=== PATIENT | male | born 1965 | race Caucasian/White ===

== ENCOUNTER 2023-03-08 11:37 | Emergency (ER) | payer BC, OTHER ==
[~2023-03-08] VITALS: Ht 170.2 cm; Wt 64.4 kg
--- OUTSIDE RECORDS SUMMARY | ~2023-03-08 | XMS | Continuity of Care Document ---
Demographics + + + | Address | [address] | | | [place] [address] | + + + | Preferred Language | Unknown | + + + | Marital Status | Never | + + + | Buddhist Affiliation | Unknown | + + + | Race | White | + + + | Ethnic Group | Not or | + + + Author + + + | Author | [facility] | + + + | Organization | [facility] | + + + | Address | [address] | | | [place] [address] | + + + | Phone | | + + + Care Team Providers + + + + | Care Custodian [employer] Name | Role | Phone | + + + + Unavailable | Unavailable | + + + + Allergies and Intolerances + + + + + + | date | description | facility | reaction | severity | + + + + + + | (no date) | Mild | [facility] | (no reaction) | (no severity) | | [facility] | | | + + + + + + | (no date) | Codeine | [facility] | (no reaction) | (no severity) | | | [facility] | | | + + + + + + | (no date) | Nausea alone | [facility] | (no reaction) | (no severity) | | | [facility] | | | + + + + + + | (no date) | Codeine | [facility] | (no reaction) | (no severity) | | | | [facility] | | | + + + + + + Encounters No information. Functional Status No information. Immunizations No information. Medications + + + + | date | description | facility | + + + + | 2022-04-21 00:00 | IPRATROPIUM BROMIDE MDI | [facility] | + + + + | 2022-04-21 00:00 | HYDROCODONE/APAP | [facility] | | | (10-325MG) | | + + + + | 2022-04-21 00:00 | HYDROCODONE | [facility] | | | BIT/ACETAMINOPHEN | | + + + + | 2022-04-21 00:00 | FLUTICASONE PROPIONATE | [facility] | + + + + Problems + + + + | date | description | facility | + + + + | 2022-04-21 00:00 | Patient left without being | [facility] | | | seen | | + + + + Procedures No information. Results/Labs No information. Social History No information. Vital Signs + + + +---------+ | date | measurement | value | units | + + + +---------+ | 2022-04-21 00:00 | BMI | 21.9 | kg/m2 | + + + +---------+ | 2022-04-21 00:00 | BP_diastolic | 66 | mmHg | + + + +---------+ | 2022-04-21 00:00 | BP_systolic | 125 | mmHg | + + + +---------+ | 2022-04-21 00:00 | heart_rate | 93 | /min | + + + +---------+ | 2022-04-21 00:00 | height_metric | 170.18 | cm | + + + +---------+ | 2022-04-21 00:00 | height_standard | 67 | in | + + + +---------+ | 2022-04-21 00:00 | o2_saturation | 97 | % | + + + +---------+ | 2022-04-21 00:00 | respiration_rate | 16 | /min | + + + +---------+ | 2022-04-21 00:00 | temperature_metric | 36.94 | C | | | | | | + + + +---------+ | 2022-04-21 00:00 | | 98.5 | F | | | temperature_standar | | | | | d | | | + + + +---------+ | 2022-04-21 00:00 | weight_metric | 63.5 | kg | + + + +---------+ | 2022-04-21 00:00 | weight_standard | 139.99 | lb | + + + +---------+"
--- OUTSIDE RECORDS SUMMARY | ~2023-03-08 | XMS | Continuity of Care Document ---
Demographics + + + | Address | [address] | | | [place] [address] | + + + | Preferred Language | Unknown | + + + | Marital Status | Never | + + + | Hindu Affiliation | Unknown | + + + | Race | White | + + + | Ethnic Group | Not or | + + + Author + + + | Author | [facility] | + + + | Organization | [facility] | + + + | Address | [address] | | | [place] [address] | + + + | Phone | | + + + Care Team Providers + + + + | Care Station Air Traffic Control Specialist Name | Role | Phone | + [...] 2022-04-21 00:00 | IPRATROPIUM BROMIDE MDI | [facility] | + + + + | 2022-04-21 00:00 | HYDROCODONE/APAP | [facility] | | | (10-325MG) | | + + + + | 2022-04-21 00:00 | HYDROCODONE | [facility] | | | BIT/ACETAMINOPHEN | | + + + + | 2022-04-21 00:00 | FLUTICASONE PROPIONATE | [facility] | + + + + Problems + + + + | date | description | facility | + + + + | 2022-04-21 00:00 | Patient left without being | [facility] | | | seen | | + [...]
[~2023-03-08 11:37] MED LIST: ATROVENT HFA12.9 GM INH; FLOVENT DISKUS50 MCG INH; NORCO 10-325 T1 EACH PO; NORCO 5-325 TA1 EACH PO
[2023-03-08 12:55] VITALS: BP 107/66
== END 2023-03-08 12:55 | disposition other institution, planned readmission (95) ==
LOC: ED 11:37
DX: R55 Syncope and collapse (principal); Z53.21 Procedure and treatment not carried out due to patient leaving prior to being seen by health care provider

== ENCOUNTER 2024-03-31 19:19 | Observation (INO) | payer BC, OTHER ==
[~2024-03-31] VITALS: Ht 170.2 cm; Wt 62.4 kg
[2024-03-31 19:27] LABS: BASOPHILS 1.9 % (0-2); EOSINOPHILS 3.4 % (0-6); HEMATOCRIT 38.7 % (35.0-50.0); HEMOGLOBIN 13.2 g/dL (12.0-18.0); LYMPHOCYTES 32.2 % (24-44); MONOCYTES 9.4 % (0-12); NEUTROPHILS 53.1 % (39-80); PLATELET COUNT 210 K/uL (140-440); RBC 3.87 M/ul (4.3-5.7); RDW 13.9 (10.5-15.0)
[2024-03-31 19:40] LABS: PARTIAL THROMBOPLASTIN TIME 29.4 Sec (22.9-41.3)
[2024-03-31 19:41] LABS: INR 1.09 (0.80-1.30); PROTIME 13.4 Sec (11.2-14.2)
[2024-03-31 19:44] LABS: ALBUMIN 3.8 g/dL (3.4-5.0); ALBUMIN/GLOBULIN RATIO 0.95 (1.1-2.4); ANION GAP 15.8 (7-21); BILIRUBIN, TOTAL 0.7 ng/dL (0.2-1.0); CALCIUM 9.4 mg/dL (8.5-10.1); CREATININE, SERUM 0.75 mg/dL (0.70-1.30); POTASSIUM 3.8 mmol/L (3.5-5.1); PROTEIN, TOTAL 7.8 g/dL (6.4-8.2)
[2024-03-31] MEDS ORDERED: ASPIRIN 325 MG TAB PO ONE (20:15)
[2024-03-31] MEDS ORDERED: NICOTINE POLACRILEX 4 MG LOZENGE BUCCAL PRN (20:30)
[2024-03-31] MEDS ORDERED: FOLIC ACID 1 MG/0.2 ML ML ONE (20:58)
[2024-03-31] MEDS ORDERED: LORazepam 1 MG TAB PO PRN (21:00)
[2024-03-31] MEDS ORDERED: THIAMINE HCL 100 MG,FOLIC ACID 1 MG,MULTIVITAMINS 10 ML in SODIUM CHLORIDE 0.9% 1,000 ML IV ONE (21:00)
[2024-03-31] MEDS ORDERED: LORazepam 2 MG/ML VIAL IV/IM PRN (21:00)
[2024-03-31] MEDS ORDERED: ondansetron HCL 4 MG/2 ML VIAL IV PRN (21:00)
[2024-03-31] MEDS ORDERED: IBUPROFEN 600 MG TAB PO PRN (21:30)
--- NOTE | 2024-03-31 21:42 | EKG ---
[facility] [address] [place] [address] Signed Normal sinus rhythm Nonspecific ST and T wave abnormality Prolonged QT Abnormal ECG When compared with ECG of 08-OCT-2018 16:25, No significant change was found Confirmed by Mt Atkins MD () on 03/31/2024 9:42:25 PM Electronically Signed By: MT ATKINS MD [id number]/[id number] PATIENT NAME: BRIAN SILVA Electrocardiogram DATE OF : 65 PHYSICIAN: MT ATKINS MD REPORT #: [id number] REPORT IS CONFIDENTIAL AND NOT TO BE RELEASED WITHOUT AUTHORIZATION
[2024-03-31 22:22] VITALS: BP 149/85
--- NOTE | 2024-03-31 23:06 | NUR ---
pt ARRIVES TO [facility]IA [facility] WITH [facility]. HR SR ON TELE 2. ASSESSMENT COMPLETE. NIH 1 AT THIS TIME. pt AMBULATORY FROM [facility] TO HOSPITAL BED. CIWA 0. URINAL PROVIDED. ORIENTATION TO ROOM PROVIDED. CALL LIGHT AND PERSONAL SUPPLIES IN REACH. ICE WATER FILLED. BANANA BAG INFUSING WNL.
[2024-04-01] VITALS (7 sets, daily range): BP systolic 144–160; BP diastolic 80–95
--- NOTE | 2024-04-01 01:15 | NUR ---
IV PUMP ALARMING, BANANA BAG COMPLETE. IV SL WNL. VS COMPLETE, STABLE. URINAL EMPTIED. CALL LIGHT IN REACH. LIGHTS OFF IN ROOM.
[2024-04-01] MEDS ORDERED: AMP/SULBACTAM SOD 3 GM VIAL IV ONE (01:43)
[2024-04-01] MEDS ORDERED: AMP/SULBACTAM SOD 3 GM in SODIUM CHLORIDE 0.9% 100 ML IV SCH (02:00)
--- NOTE | 2024-04-01 02:13 | NUR ---
IN ROOM FOR IV ANTIBIOTIC ADMINISTRATION. pt STATES SPILLED URINAL IN BED, "IT WILL DRY". LINENS AND CHUX CHANGED. SCRUB PAJAMA PANTS PROVIDED. pt CLEANED SELF WITH BATH WIPES. BACK IN BED. BED ALARM ON. URINAL IN REACH. PO SNACK PROVIDED. CIWA 0. NEURO CHECK COMPLETE.
[2024-04-01] MEDS ORDERED: NICOTINE POLACRILEX 4 MG LOZENGE BUCCAL PRN (03:00)
--- NOTE | 2024-04-01 03:08 | NUR ---
IV ANTIBIOTIC COMPLETE. SL. pt REQUESTS NICOTINE LOSANGE, ADMINISTERED PER REQUEST. NO ADDITIONAL NEEDS. BED ALARM ON. CALL LIGHT IN REACH.
--- NOTE | 2024-04-01 05:15 | NUR ---
LAB TECHS OUT OF ROOM. VS COMPLETE AT THIS TIME. NEURO CHECK COMPLETE. pt STATES "I'M 100% BETTER". SNACK PROVIDED. CALL LIGHT IN REACH. BED ALARM ON.
[2024-04-01 05:42] LABS: BASOPHILS 0.4 % (0-2); EOSINOPHILS 6.3 % (0-6); HEMATOCRIT 36.2 % (35.0-50.0); HEMOGLOBIN 12.2 g/dL (12.0-18.0); LYMPHOCYTES 37.3 % (24-44); MCH 33.9 (27-36); MCHC 33.7 g/dl (30-36); MCV 100.6 fl (81-99); MONOCYTES 11.3 % (0-12); NEUTROPHILS 44.7 % (39-80); PLATELET COUNT 189 K/uL (140-440); RDW 14.3 (10.5-15.0)
[2024-04-01 05:55] LABS: ALBUMIN 3.1 g/dL (3.4-5.0); ALBUMIN/GLOBULIN RATIO 0.86 (1.1-2.4); ANION GAP 13.6 (7-21); BILIRUBIN, TOTAL 0.5 ng/dL (0.2-1.0); BUN/CREATININE RATIO 18.86 (6.0-28.6); CALCIUM 8.4 mg/dL (8.5-10.1); CHOLESTEROL/HDL RATIO 2.1; CREATININE, SERUM 0.53 mg/dL (0.70-1.30); PHOSPHORUS, INORGANIC 3.4 mg/dL (2.5-4.9); POTASSIUM 3.6 mmol/L (3.5-5.1); PROTEIN, TOTAL 6.7 g/dL (6.4-8.2)
--- NOTE | 2024-04-01 06:15 | NUR ---
BED ALARM SOUNDING. pt UP TO SIDE OF BED FOR VOID IN URINAL. BACK IN BED AT THIS TIME. PRN NICOTINE LOSANGE ADMINISTERED. pt DENIES NEEDS. CALL LIGHT IN REACH. BED ALARM ON.
--- NOTE | 2024-04-01 06:43 | NUR ---
CALL LIGHT ANSWERED. pt STATES "I'M READY TO GO HOME NOW". REMINDED pt OF ORDERED MRI AND ECHO. pt AGREEABLE TO STAY.
--- NOTE | 2024-04-01 07:05 | NUR ---
RECEIVED REPORT FROM SOO SLOAN. PT RESTING IN BED WITH EYES CLOSED, BREATHING EVEN AND UNLABORED. CALL LIGHT WITHIN REACH.
--- NOTE | 2024-04-01 08:30 | NUR ---
PT UP TO RESTROOM INDEPENDENTLY. PT DENIES PAIN/NAUSEA/SOB AT THIS TIME. PT A+O X4. PT DENIES NUMBNESS OR TINGLING IN ANY EXTREMETY. PT STATES NO NEEDS AT THIS TIME, UPDATED ON POC, PT VERBALIZES UNDERSTANDING, STATES ALL QUESTIONS HAVE BEEN ANSWERED. CALL LIGHT WITHIN REACH.
[2024-04-01] MEDS ORDERED: NICOTINE 21 MG/24 HR 1 EA TDSY TD SCH (09:00)
--- NOTE | 2024-04-01 09:20 | NUR ---
In to speak with pt. MRI person arrives. Let pt know I will return later.
--- NOTE | 2024-04-01 09:57 | NUR ---
MED REC COMPLETE
--- NOTE | 2024-04-01 10:29 | NUR ---
WHEN I WENT IN THIS MORNING TO UPDATE THE WHITE BOARD PATIENT WAS SLEEPING.
--- NOTE | 2024-04-01 10:30 | NUR ---
WHEN I WENT BACK TO DO PATIENT'S VITALS. PATIENT WAS JUST COMING OUT OF THE BATHROOM. I ASKED HIM IF HE WOULD LIKE TO WASH HIS FACE AND BRUSH HIS TEETH HE SAID SURE SO I GOT HIM A WASH CLOTH AND A HAND TOWEL. WHILE PATIENT WASH BRUSHING HIS TEETH CHANGED BED LINENS. THAN TOOK OUT HIS BREAKFAST TRAY. ASKED HIM IS THERE ANYTHING ELSE HE NEEDED AND HE SAID NO NOT AT THIS TIME. CALL LIGHT WITH IN REACH.
--- NOTE | 2024-04-01 10:43 | NUR ---
UR CLINICAL REVIEW: [facility] SELF OBS FOR [facility] PPO OBS 03/31/24 @ 1635 ORDER MATCHES STATUS AUTH PENDING, WILL SEND CLINICALS VIA [email or web address] IF REQUESTED. PLAN FOR DC TO HOME WHEN STABLE. 04/02/24
--- NOTE | 2024-04-01 11:30 | NUR ---
Spoke with Obdulio. He lives alone. Does not drive, but ride a bicycle that has a motor. He denies needs. Lives in an apartment with 2 steps. Friend and sister help him as needed. He would like a pcp and a dentist. Pt has OHP. I wrote Dr Gonzalez name and number on the PCP list I gave him. [facility] to see if they can see him. I attempted to contact Dr. Gonzalez office, but no answer. Message left and request I return call. Pt plans on dc to home today. Denies needs. Pt is able to provide his own self care and house hold chores. Pt denies assistance from [employer] and states he does not feel he has a problem with alcohol. Notified by pts nurse he is walking out and does not want to stay for appts. Let her know the clinic will call him. I have faxed his chart to them. She reports to has drinking from a vodka bottle.
--- NOTE | 2024-04-01 11:55 | NUR ---
DR. ATKINS NOTIFIES THIS RN AND INVESTIGATIONS DIRECTOR OF PT DRINKING ALCOHOL IN ROOM WHEN MD TO BEDSIDE. PT EDUCATION ON NOT DRINKING ALCOHOL WHILE IN THE HOSPITAL, PT VERBALIZES UNDERSTANDING AND AGREES TO NOT DRINK ALCOHOL WHILE IN HOSPITAL. PT STATES NO NEEDS AT THIS TIME, CALL LIGHT WITHIN REACH.
[2024-04-01] MEDS ORDERED: ASPIRIN REGIMEN81 MG PO (11:59)
[2024-04-01] MEDS ORDERED: AMOX TR-K CLV1 EAC1 PO (11:59)
[2024-04-01] MEDS ORDERED: PHARMACY RENAL DOSE ADJUSTMENT 1 DOSE MISC PO SCH (12:00)
[2024-04-01] MEDS ORDERED: PLAVIX75 MG PO (12:00)
[2024-04-01] MEDS ORDERED: LIPITOR40 MG PO (12:01)
[2024-04-01] MEDS ORDERED: CLOPIDOGREL BISULFATE 75 MG TAB PO ONE (12:15)
[2024-04-01] MEDS ORDERED: ASPIRIN 81 MG CHEW PO ONE (12:15)
[2024-04-01] MEDS ORDERED: ATORVASTATIN 40 MG TAB PO ONE (12:15)
--- NOTE | 2024-04-01 12:35 | NUR ---
PT SITTING ON BED, STATES "I AM NOT GOING TO WAIT, I AM LEAVING". EDUCATION ON DISCHARGE PROTOCOL AND IMPORTANCE OF MEDICATIONS ORDERED AND DISCHARGE INSTRUCTIONS, PT AGREES TO GET DISCHARGE DONE. VSS. DISCHARGE EDUCATION AND PACKET GIVEN TO PT, PT VERBALIZES UNDERSTANDING, STATES ALL QUESTIONS HAVE BEEN ANSWERED. IV DC'D WNL, WRAPPED WITH GAUZE AND COBAN. NIH EXAM, PT SCORES 0, SEE NIH TAB. PHARMACY TO BEDSIDE. PT LEAVING WITH ALL PERSONAL BELONGINGS HE CAME WITH. PT WHEELED TO FRONT OF BUILDING BY NURSING PERSONEL, TAXI ARRIVES TO TAKE PT.
--- NOTE | 2024-04-01 15:48 | NUR ---
Received a call back from Dr. Rojas's office. They are not accepting pts at this time. I received the phone number for [facility]. I called Vinay and updated. Also let him know I [facility] and they will call him with an appointment.
== END 2024-04-01 12:35 | disposition home or self-care (01) ==
LOC: ED 19:19 → MS 20:55
PROVIDERS: Emergency Medicine; ADMIT Family Medicine; ATTEND Family Medicine
DX: I63.9 Cerebral infarction, unspecified (principal); G81.94 Hemiplegia, unspecified affecting left nondominant side; R20.2 Paresthesia of skin; K02.9 Dental caries, unspecified; F10.929 Alcohol use, unspecified with intoxication, unspecified; R94.5 Abnormal results of liver function studies; I10 Essential (primary) hypertension; F17.210 Nicotine dependence, cigarettes, uncomplicated; Z88.5 Allergy status to narcotic agent; Y90.8 Blood alcohol level of 240 mg/100 ml or more
CPT/HCPCS: 36415; 70450; 70496; 70498; 70551; 71045; 80053; 80061; 83036; 83735; 84100; 85025; 85610; 85730; 93005; 93010; 93306; 96365; 96366; 96367; 97161; 97165; 99285-25; A9270; G0378; G0480; J0295; J3411; J7030; Q9967